=== PATIENT | female | born 1990 | race African-American/Black ===

== ENCOUNTER 2019-10-15 00:33 | Emergency (ER) | payer MEDICAID ==
[~2019-10-15] VITALS: Ht 167.6 cm; Wt 99.0 kg
[2019-10-15] MEDS ORDERED: HYDROCODONE/ACETAMINOPHEN 5/325MG TABLET PO STA ×2 (01:09→04:38)
[2019-10-15] MEDS ORDERED: BACITRACIN ZINC OINT UDPKT TOP ONE (01:15)
[2019-10-15] MEDS ORDERED: LIDOCAINE HCL/PF 1% 10 MG/ML 5ML VIAL IJ ONE (01:15)
[2019-10-15 01:50] LABS: HCG SCREEN NEGATIVE
[2019-10-15] MEDS ORDERED: TETANUS, DIPHTHERIA, PERTUSSIS VAC/PF 0.5ML (>7YR OLD) IM ONE (03:45)
[2019-10-15] MEDS ORDERED: AMOXICILLIN/POTASSIUM CLAVULANATE 875/125MG TAB PO NR (04:45)
[2019-10-15 05:10] VITALS: BP 118/74
[2019-10-15] MEDS ORDERED: MORPHINE SULFATE 4 MG/ML CPJ (NOT FOR IM USE) IV ONE (05:45)
== END 2019-10-15 07:53 | disposition home or self-care (01) ==
LOC: ER 00:33
DX: S01.01XA Laceration without foreign body of scalp, initial encounter (principal); S01.81XA Laceration without foreign body of other part of head, initial encounter; Z20.828 Contact with and (suspected) exposure to other viral communicable diseases; J45.909 Unspecified asthma, uncomplicated; F12.10 Cannabis abuse, uncomplicated; Y04.0XXA Assault by unarmed brawl or fight, initial encounter; Y93.89 Activity, other specified; Y92.89 Other specified places as the place of occurrence of the external cause; Y99.8 Other external cause status
CPT/HCPCS: 12001; 12011; 70486; 71045; 73590; 84703; 90471; 90715; 99285; J3490

== ENCOUNTER 2022-08-02 17:53 | Emergency (ER) | payer MEDICAID ==
[~2022-08-02] VITALS: Ht 160 cm; Wt 117.0 kg
[2022-08-02 18:10] VITALS: BP 117/70
[2022-08-02] MEDS ORDERED: LORA-249 PO (20:20)
[2022-08-02] MEDS ORDERED: ARIP30TA2 MT (20:20)
[2022-08-02] MEDS ORDERED: QUET50TA MT (20:20)
== END 2022-08-02 21:00 | disposition home or self-care (01) ==
LOC: ER 17:53
DX: Z76.0 Encounter for issue of repeat prescription (principal); J45.909 Unspecified asthma, uncomplicated; F20.9 Schizophrenia, unspecified; F12.90 Cannabis use, unspecified, uncomplicated
CPT/HCPCS: 99281

== ENCOUNTER 2023-06-08 17:36 | Emergency (ER) | payer MEDICAID ==
[~2023-06-08] VITALS: Ht 167.6 cm; Wt 137.0 kg
[~2023-06-08 17:36] MED LIST: ARIP30TA2 MT; LORA-249 PO; QUET50TA MT
[2023-06-08 18:00] VITALS: BP 158/77; PULSE 91; RESP 18; TEMP 97.3; O2SAT 99
[2023-06-08] MEDS ORDERED: KETO5DRO80 LEFTEYE (19:22)
[2023-06-08] MEDS ORDERED: NAPR-681 MT (19:22)
[2023-06-08] MEDS ORDERED: TOPUD PO (19:22)
== END 2023-06-08 19:38 | disposition home or self-care (01) ==
LOC: ER 17:36
DX: H57.12 Ocular pain, left eye (principal); J45.909 Unspecified asthma, uncomplicated; F20.9 Schizophrenia, unspecified; F12.10 Cannabis abuse, uncomplicated
CPT/HCPCS: 99281

== ENCOUNTER 2023-10-30 02:29 | Emergency (ER) | payer MEDICAID ==
[~2023-10-30] VITALS: Ht 157.5 cm; Wt 97.0 kg
[~2023-10-30 02:29] MED LIST changes: +KETO5DRO80 LEFTEYE; +NAPR-681 MT; +TOPUD PO
[2023-10-30 02:35] VITALS: BP 132/88; PULSE 110; TEMP 98.9; O2SAT 97
[2023-10-30 02:37] VITALS: RESP 16
== END 2023-10-30 05:55 | disposition home or self-care (01) ==
LOC: ER 02:29
DX: G89.29 Other chronic pain (principal); M25.561 Pain in right knee; F12.10 Cannabis abuse, uncomplicated; J45.909 Unspecified asthma, uncomplicated; Y93.67 Activity, basketball; Y92.89 Other specified places as the place of occurrence of the external cause; Y99.8 Other external cause status; Z86.59 Personal history of other mental and behavioral disorders
CPT/HCPCS: 99283; 73560; L1830